=== PATIENT | female | born 1980 | race Caucasian/White ===

== ENCOUNTER 2016-07-12 19:56 | Inpatient (IN) | payer OTHER ==
--- NOTE | ~2016-07-12 | DS ---
Unit #: [id number] #: [id number] Patient: [facility]ENJAMIN [id number] [facility] [address] [place] [address] [id number] MR#: [id number] NAME: INDIA BENJAMIN ROOM: [facility] Age: 36 Sex: F Admission Date: 07/12/2016 : 1980 Discharge Date: 07/16/2016 Attending Physician: Michelle Willingham M.D. Primary Care Physician: Erna [facility] DISCHARGE SUMMARY IDENTIFYING DATA Ms. Benjamin is a 36-year-old white female with history of substance abuse and mood disorder, who is known to us from previous encounter, and was self-referred to the hospital. DISCHARGE DIAGNOSES Psychiatric: Alcohol dependence, moderate and acute withdrawals; opioid dependence, moderate and acute withdrawals; methamphetamine dependence, moderate; alcohol-induced mood disorder. Medical: None. Stressors: Moderate psychosocial stressors. HISTORY OF PRESENT ILLNESS Please see initial psychiatric evaluation for details. PAST PSYCHIATRIC HISTORY Please see initial psychiatric evaluation for details. PAST MEDICAL HISTORY Please see initial psychiatric evaluation for details. HOSPITAL COURSE The patient was admitted to the adult chemical dependency unit at [facility] and was oriented to the hospital environment. Routine p.r.n. medications were initiated, and she was started on the detox protocol for both alcohol and opioids and she was closely monitored. She was taking the medications and was tolerating them fairly well and was able to show a decent and therapeutic response and was able to come out of the detox without any complications and as such, it was decided that she will be discharged home and will continue treatment on an outpatient basis. DISCHARGE CONDITION Stable. PROGNOSIS Fair. Dictated by... Michelle Willingham M.D. IAA/modl Unit #: [id number] #: [id number] Patient: INDIA BENJAMIN TD: 08/03/2016 23:16 JOB #: [id number] DISCHARGE SUMMARY Page 1 of 1 X Michelle Willingham MD X DISCHARGE SUMMARY
--- NOTE | ~2016-07-12 | PN ---
Unit #: [id number] #: [id number] Patient: INDIA BENJAMIN [id number] [facility] [address] [place] [address] [id number] MR#: [id number] NAME: INDIA BENJAMIN ROOM: P123 Age: 36 Sex: F Admission Date: 07/12/2016 : 1980 Attending Physician: Michelle Willingham M.D. Admitting Physician: Michelle Willingham M.D. Primary Care Physician: Erna Nieto [facility] PROGRESS NOTES DATE July 15, 2016 DISCUSSION Ms. Benjamin is a 36-year-old white female, who was seen today and chart was reviewed and the case was discussed with the staff. Treatment team was initiated yesterday due to the patient's quite disorganized behavior, agitation, and aggression and psychosis, and significant problems with her cooperation with the staff and she has already been moved to two different units as she has been causing some distress to every unit she goes to, and finally it was decided that she would be moved to the third unit to create more supportive environment to handle her behavior in a better fashion. However, as the patient was being escorted, she tried to run away and the code had to be called and staff responded, and the patient was seen to be trying to get onto the kids unit and was held and was then taken to the adult unit and was seen to be escalating with increasing agitation and aggression, yelling and screaming, and cursing and ended up in five point restraints and medications were given to calm her down. She, once again, this morning, was quite disorganized stating that she is ready to go and when asked about yesterday's event, she acted as if she did not know what I was talking about, stating, "I don't know what you are talking about, what happened yesterday." She, then, when confronted was able to calm and realize events particularly pertaining to her attitude and behavior and I told her that it will be a few days before she will be able to get out of here until we get her stabilized and she then stated that in that case she would just like to take Paxil and Risperdal and has been refusing to take other medications and I told her that it will be fine with me if she wants to take the Paxil and Risperdal so we can address her psychosis and mood instability. At this time we will maintain her on Paxil and Risperdal, monitor her response and encourage her to show better compliance with the medications and treatment recommendations. Dictated by... Michelle Willingham M.D. Unit #: [id number] #: [id number] Patient: INDIA BENJAMIN LAITH/sravan TD: 07/15/2016 09:35 JOB #: [id number] [facility] PROGRESS NOTES Page 1 of 1 X Michelle Willingham MD X PROGRESS NOTE
--- NOTE | ~2016-07-12 | PN ---
Unit #: [id number] #: [id number] Patient: INDIA BENJAMIN [id number] [facility] [address] [place] [address] [id number] MR#: [id number] NAME: INDIA BENJAMIN ROOM: P206 Age: 36 Sex: F Admission Date: 07/12/2016 : 1980 Attending Physician: Michelle Willingham M.D. Admitting Physician: Michelle Willingham M.D. Primary Care Physician: Erna [facility] PROGRESS NOTES DATE July 14, 2016 DISCUSSION Ms. Benjamin is a 36-year-old white female, who was seen today and chart was reviewed and the case was discussed with the staff. She has been anxious, withdrawn, but has not shown any agitation or irritability and has been cooperative with the treatment recommendations and she has been taking the medications and has been showing persistent depressive symptoms and asked me if I could start her back on the Paxil "for my mental health issues." MENTAL STATUS EXAMINATION Young white female, who was casually dressed with fair personal hygiene and appears to be in no acute distress or discomfort. The patient was awake and alert on interaction with intact orientation. Her mood was anxious and depressed with a congruent affect. The patient denies any suicidal or homicidal ideations, and also denies any auditory or visual hallucinations. Her insight and judgment remain slightly impaired. TREATMENT PLAN 1. We will continue her on her current medications and treatment protocol, and will monitor her response to the medications, and make further adjustments as needed. 2. We will continue to followup. Dictated by... Anika Gonsales/sravan TD: 07/14/2016 09:46 JOB #: [id number] Unit #: [id number] #: [id number] Patient: INDIA BENJAMIN PROGRESS NOTES Page 1 of 1 X Michelle Willingham MD PROGRESS NOTE
--- NOTE | ~2016-07-12 | PA ---
Unit #: [id number] #: [id number] [facility]: [facility]AMIN [id number] [facility] [address] [place] [address] [id number] MR#: [id number] NAME: INDIA BENJAMIN ROOM: 75 Age: 36 Sex: F Admission Date: 07/12/2016 : 1980 Date of Assessment: 07/13/2016 Attending Physician: Michelle Willingham M.D. Admitting Physician: Michelle Willingham M.D. Primary Care Physician: Erna Nieto [facility] PSYCHIATRIC ASSESSMENT DATE OF SERVICE 07/13/2016. IDENTIFYING DATA Ms. Benjamin is a 36-year-old white female, who is a resident of [place], [place], and was self-referred to the hospital on a voluntary basis. CHIEF COMPLAINT "Relapsed because of my physical cravings." HISTORY OF PRESENT ILLNESS Ms. Benjamin is a 36-year-old white female, who currently has been at [facility] for about a 1 month and reports in this placement, she had 6 months of sober living starting in 01/2016 and reports that she relapsed because of the physical cravings and reports using half a gram of heroin, a gram of methamphetamine intravenously for the last month and has been using an undisclosed amount of alcohol as well and does report increasing depression, anxiety, irritability, paranoid ideations, believing that others are out to get her and that others are watching her thought through the phone and the patient apparently has been responding to internal stimuli during the assessment, was seen to be acutely psychotic and exhibiting bizarre behavior, and was out of touch with reality and reports hearing male voices that are talking about her. She does report feelings of hopelessness and helplessness, although she denies any suicidal ideation, she was seen to be a significant danger to self and others with acute psychosis and substance abuse issues and as such, recommendation for inpatient level of care for safety and stabilization was made. SUBSTANCE ABUSE HISTORY The patient reports history of alcohol, opioids, and methamphetamine, and reports currently methamphetamine and opioids have been her drug of choice as she has been using it intravenously on a regular basis. PAST PSYCHIATRIC HISTORY The patient [facility] and review of the medical records indicate currently she is not active in any treatment program, is not seeing a psychiatrist, and not taking psychotropic medications. PAST MEDICAL HISTORY Significant for history of withdrawal seizures. Unit #: [id number] #: [id number] Patient: INDIA BENJAMIN ALLERGIES Penicillin and codeine. PERSONAL AND SOCIAL HISTORY A 36-year-old white female who reports that she is single, unemployed, and lives in a [facility] and has poor social support system. MENTAL STATUS EXAMINATION Young white female, who was casually dressed with fair personal hygiene, appears to be in no acute distress or discomfort. She was awake and alert on interaction with intact orientation to time, place, and person. Her mood was anxious and depressed with a congruent affect. Speech was slow and restricted in content. Her thought processes were disorganized with some looseness of associations and flight of ideas, paranoid ideations and auditory and visual hallucinations. Her insight and judgment remain significantly impaired. DIAGNOSTIC IMPRESSION Psychiatric: Alcohol dependence, moderate, in acute withdrawals; opioid dependence, moderate and acute withdrawals; methamphetamine dependence, moderate; methamphetamine-induced psychosis. Medical: None. Stressors: Moderate psychosocial stressors. TREATMENT PLAN 1. The patient has presented with a history of mood disorder and substance abuse and has been decompensating and will need inpatient hospitalization for safety and stabilization. For detoxification, we will start her back on her home medications. We will adjust the medications and monitor response. 2. Supportive therapy was provided to the patient. 3. Safe, structured, and nourishing environment will be provided. ESTIMATED LENGTH OF STAY 5 to 7 days. ABILITY TO HELP SELF Limited. WILLINGNESS TO HELP SELF The patient appears to be willing to help self. STRENGTHS 1. Communicative. 2. Cooperative. PROBLEMS 1. Chronic dysphoric symptoms. 2. Poor social support system. DISCHARGE CRITERIA This will be contingent upon the patient's ability to go through detox without having any significant withdrawal symptoms and her ability to show resolution of her psychosis as well as her ability to stay safe to herself, particularly after discharge from the hospital. Dictated by... Unit #: [id number] #: [id number] Patient: INDIA BENJAMIN Anika Gonsales/noah TD: 07/13/2016 08:04 JOB #: [id number] PSYCHIATRIC ASSESSMENT Page 1 of 1 X Michelle Willingham MD PSYCHIATRIC ASSESSMENT
--- NOTE | ~2016-07-12 | HP ---
Unit #: [id number] #: [id number] Patient: KENIA BENJAMIN [id number] [facility] [address] [place] [address] [id number] MR#: [id number] NAME: KENIA BENJAMIN ROOM: [facility] Age: 36 Sex: F Admission Date: 07/12/2016 : 1980 Attending Physician: Michelle Willingham M.D. Admitting Physician: Michelle Willingham M.D. Primary Care Physician: Erna Nieto [facility] HISTORY AND PHYSICAL HISTORY OF PRESENT ILLNESS Kenia is a 36 year old, admitted to the [facility], because of her continued illicit substance abuse which includes heroin and IV methamphetamine. She has had other admissions to this facility for the same. PAST MEDICAL HISTORY 1. Long history of alcohol abuse. 2. History of illicit substance abuse to include IV heroin and IV methamphetamine. 3. History of withdrawal seizures. PAST SURGICAL HISTORY 1. Bilateral carpal tunnel release. 2. Hysterectomy. 3. Oral. ALLERGIES Penicillin, codeine. SOCIAL HISTORY She smokes one pack per day. She drinks alcohol on occasion. Admits to long history of poly illicit substance abuse to include IV drugs. FAMILY HISTORY Medically noncontributory. REVIEW OF SYSTEMS CONSTITUTIONAL: No fever or chills. HEENT: Denies any sore throat, ear pain or runny nose. CARDIOVASCULAR: Denies chest pain, irregular heart rhythm or palpitations. CHEST: Denies shortness of breath or cough. No hemoptysis. GASTROINTESTINAL: Denies nausea, vomiting, diarrhea or chronic constipation. ENDOCRINE: Denies history of increased thirst or urination. No recent significant weight loss or gain. GENITOURINARY: Denies dysuria, frequency, or hematuria. SKIN: Denies any rashes. HEMATOLOGIC: Denies history of increased bleeding or bruising. MUSCULOSKELETAL: Denies any hot, swollen joints. No generalized muscle pain. NEUROLOGIC: Denies problems with vision or speech. No frequent, severe headaches. No numbness, tingling or weakness in any extremities. Denies loss of bladder or bowel control. Unit #: [id number] #: [id number] Patient: KENIA BENJAMIN CURRENT MEDICATIONS Detox protocol. PHYSICAL EXAMINATION GENERAL: Alert, well-nourished, no apparent distress. VITAL SIGNS: Blood pressure 110/70, heart rate 84, respirations 16, and temperature 98.6. WEIGHT: 122 pounds. HEIGHT: 5 feet 4 inches. SKIN: Warm and dry without rash or lesion. HEENT: Normocephalic. TMs not viewed. Oral and nasal passages clear. Conjunctivae clear. PERRLA. EOMs intact. NECK: Supple without lymphadenopathy or thyromegaly. HEART: Regular rate and rhythm without murmur. LUNGS: Clear. ABDOMEN: Soft, nontender. : Not done. EXTREMITIES: No evidence of cyanosis, clubbing or edema. Moves all without focal deficit. NEUROLOGICAL: Grossly within normal limits. Cranial Nerves: II: Visual palacios are intact. III, IV AND : Extraocular movements are intact. Pupils are equal, round and reactive to light. V: Facial sensation is grossly normal. VII: Facial movements and expression are normal. VIII: Auditory acuity grossly intact. IX, X: Uvula is midline. Phonation is normal. XI: Patient shrugs shoulders and turns head normally. XII: Tongue protrudes in the midline. Sensory and Motor Function: Sensory and motor sensation is grossly normal. Motor: moves all extremities well. Coordination: Gait is normal. Deep Tendon Reflexes: Intact. IMPRESSION Psychiatric admission. RECOMMENDATIONS Psychiatric, per psychiatrist. MEDICAL I see no contraindications to participating in facility's activities. MEDICAL PROGNOSIS Good. MEDICAL CONDITION Stable. Dictated by... Anisha Fernandez P.A.-C. for Anika Hoffman/sravan TD: 07/13/2016 12:09 JOB #: [id number] Unit #: [id number] #: [id number] Patient: KENIA BENJAMIN HISTORY AND PHYSICAL Page 1 of 1 X Anisha Fernandez HISTORY AND PHYSICAL
[2016-07-13 09:41] LABS: BASOPHIL% 0.4 % (0-2.5); EOSINOPHIL# 0.1 X10e3 (0-0.7); EOSINOPHIL% 1.4 % (0.0-7.0); HEMATOCRIT 39.2 % (35.0-45.0); LYMPHOCYTE# 1.4 X10e3 (1.0-3.5); LYMPHOCYTE% 22.9 % (17.0-45.0); MEAN CELL VOLUME 93.9 FL (83-96); MEAN CORPUSCULAR HEMOGLOBIN 31.2 PG (28-34); MEAN CORPUSCULAR HGB CONC 33.3 g/dL (30-36); MEAN PLATELET VOLUME 9.6 FL (6.5-11.5); MONOCYTE# 0.7 X10e3 (0-1.0); MONOCYTE% 10.9 % (3.0-12.0); NEUTROPHIL% 64.4 % (40-75); PLATELET COUNT 191 X10e3 (140-420); RED BLOOD COUNT 4.17 X10e (3.90-5.30); RED CELL DISTRIBUTION WIDTH 12.8 % (11.0-15.5); WHITE BLOOD COUNT 6.3 X10e3 (4.0-10.5)
[2016-07-13 09:46] LABS: DIFF IND NO
[2016-07-13 09:52] LABS: ALBUMIN SERUM 4.3 g/dL (3.5-5.0); BILIRUBIN,TOTAL 0.7 mg/dL (0.2-2.0); BUN/CREATININE RATIO 13.33; CALCIUM SERUM 9.9 mg/dL (8.4-10.2); CREATININE SERUM 0.6 mg/dL (0.6-1.4); GLOM FILT RATE Estimated 117.3 mL/min (>60); POTASSIUM 4.1 mmol/L (3.5-5.1); PROTEIN TOTAL SERUM 6.7 g/dL (6.0-8.3)
[2016-07-14 09:36] LABS: URINE APPEARANCE CLEAR; URINE BILIRUBIN NEG (NEG); URINE BLOOD NEG (NEG); URINE COLOR YELLOW; URINE GLUCOSE NEG (NEG); URINE KETONE NEG (NEG); URINE LEUKOCYTE ESTERASE 1+ (NEG); URINE NITRATE NEG (NEG); URINE PROTEIN NEG (NEG); URINE SPECIFIC GRAVITY 1.006 (1.003-1.035); URINE UROBILINOGEN 0.2 MG/DL (NEG)
[2016-07-14 09:39] LABS: URBCS1 AUWI 0-2 /[HPF] (0-2); URINE BACTERIA AUWI 2+ (NEGATIVE); URINE SQUAMOUS EPITHELIAL CELL MOD /[HPF]
[2016-07-14 10:35] LABS: AMPHETAMINE POS (NEG); BARBITURATES NEG (NEG); BENZODIAZEPINES POS (NEG); COCAINE NEG (NEG); MARIJUANA NEG (NEG); OPIATES POS (NEG); TRICYCLIC ANTIDEPRESSANTS NEG (NEG); U METHADONE NEG (NEG)
== END 2016-07-16 13:32 | disposition home or self-care (01) | DRG 897 ==
LOC: P1E 19:56 → P2S 07-13 18:21 → P1S 07-14 11:57
PROVIDERS: Psychiatry & Neurology Psychiatry
PROC: HZ2ZZZZ Detoxification Services for Substance Abuse Treatment (ICD-10-PCS; principal; 2016-07-12)
DX: F10.239 Alcohol dependence with withdrawal, unspecified (principal); F11.23 Opioid dependence with withdrawal; F15.20 Other stimulant dependence, uncomplicated; F15.259 Other stimulant dependence with stimulant-induced psychotic disorder, unspecified; Z90.710 Acquired absence of both cervix and uterus; F17.210 Nicotine dependence, cigarettes, uncomplicated; Z88.0 Allergy status to penicillin; Z88.5 Allergy status to narcotic agent
CPT/HCPCS: 80053; 80307; 81003; 84703; 85025; 86592